=== PATIENT | female | born 1950 | race Caucasian/White ===

== ENCOUNTER 2021-01-20 05:40 | Day surgery (SDC) | payer MEDICARE, OTHER ==
[~2021-01-20 05:40] MED LIST: ACETAMINOPHEN325 MG PO; ALEVE220 M1 PO; ASPIRIN EC81 MG PO; JANUMET 50-1,01 EACH PO; JARDIANCE10 MG PO; LEVEMIR FL100 UNIT/1 SC; LISINOPRIL10 MG PO; MELOXICAM15 MG PO; NOVOLOG FL100 UNIT/1 SC; PHOSLO667 MG PO; PIOGLITAZONE HC45 MG PO; ROSUVASTATIN CA40 MG PO; TUMS200 MG PO
[2021-01-20] MEDS ORDERED: PERCOCET 5-3251 EACH PO (06:59)
--- NOTE | 2021-01-20 14:35 | NUR ---
PT. TO D/C HOME. PT. HAS A ROLLING WALKER. [facility] TO DELIVER A 11/10. PT. HAS AN APPT. AT [facility] ON 01/22/2021 @ 9:00 A.M.
[2021-01-21 06:58] LABS: BASOPHIL 0.2 % (0-2); EOSINOPHIL 1.6 % (0-7); HGB 11.1 g/dl (12.5-16.0); LYMPHOCYTE 34.8 % (15-48); MCH 31.3 pg (25.0-31.0); MCHC 32.6 g/dL (32.0-36.0); MCV 95.8 fL (78.0-100.0); MONOCYTE 9.4 % (0-12); MPV 10.5 fL (6.0-9.5); NEUTROPHIL 53.7 % (41-80); NRBC 0; PLT 206 K/uL (150-400); RBC 3.55 M/uL (4.20-5.40); RDW 13.6 % (11.5-14.0); WBC 9.7 K/uL (4.0-10.5)
[2021-01-21 07:16] LABS: BUN/CREAT RATIO (CALC) 30.4 RATIO; CREATININE 0.79 mg/dL (0.51-0.95); POTASSIUM 5.2 mmol/L (3.5-5.1)
[2021-01-21] MEDS ORDERED: ZOFRAN4 M1 PO (09:11)
[2021-01-21] MEDS ORDERED: FEOSOL325 MG PO (09:11)
--- NOTE | 2021-01-21 11:27 | NUR ---
PT. TO [place]/ HOME THIS DATE. PT. HAS A ROLLING WALKER AND 11/10. PT. REQUESTED OUTPT. AT [facility], BUT CHANGED HER MIND TO [facility] TO [place]. CLINICALS FAXED TO [facility] TO [place]. [phone]. PT. ADVISED THAT THERAPIST WOULD CONTACT HER THIS EVENING TO SET UP APPT. FOR TUESDAY. PT ALSO ADVISED THAT IF SHE DOESN'T HEAR FROM THE THERAPIST SHE IS TO CALL [facility] OUTREACH AT [phone]..
== END 2021-01-21 11:23 | disposition home or self-care (01) ==
LOC: FMS 05:40 → FAS 05:40 → FMS 07:55 → FAS 01-21 11:23
PROVIDERS: Orthopaedic Surgery
DX: M17.12 Unilateral primary osteoarthritis, left knee (principal); M21.162 Varus deformity, not elsewhere classified, left knee; K21.9 Gastro-esophageal reflux disease without esophagitis; E11.9 Type 2 diabetes mellitus without complications; E78.5 Hyperlipidemia, unspecified; I10 Essential (primary) hypertension; Z86.16 Personal history of COVID-19; Z79.4 Long term (current) use of insulin; R09.02 Hypoxemia; R11.2 Nausea with vomiting, unspecified
CPT/HCPCS: 36415; 73560; 80048; 85025; 86850; 86900; 86901; 94010; 94762; 97110; 97162; 97166; 97530-GP; 97535; C1713; C1776; J0171; J0697; J0735; J1100; J1885; J2250; J2270; J2405; J2795; J3010; J7120